=== PATIENT | female | born 1985 | race Caucasian/White ===

== ENCOUNTER 2018-09-27 14:30 | Emergency (ER) | payer OTHER, SELFPAY ==
[2018-09-27] MEDS ORDERED: ACETAMINOPHEN 500 MG TAB ONE (14:53)
[2018-09-27] MEDS ORDERED: NA CHLORIDE 0.9% 1,000 ML ONE ×2 (15:17→16:22)
[2018-09-27] MEDS ORDERED: CEFTRIAXONE/SWI 1gm 2 GM/20 ML SYR ONE (15:17)
[2018-09-27] MEDS ORDERED: NA CHLORIDE 0.9% 500 ML ONE (15:17)
[2018-09-27] MEDS ORDERED: AZITHROMYCIN 500 MG/250 ML BAG ONE (15:18)
[2018-09-27 15:35] LABS: Absolute Lymphocytes (CBC) 0.7 K/uL (0.7-4.9); Absolute Monocytes 0.4 K/uL (0.1-1.3); Absolute Neutrophil 3.5 K/uL (1.8-8.0); Basophils % 0.6 % (0-1.3); Eosinophils % 0.2 % (0-4.4); Hematocrit 43.4 % (36.0-45.0); Lymphocytes % 14.4 % (15.3-44.8); MPV 10.9 fL (7.6-11.3); Monocytes % 9.7 % (3.3-12.3); RBC Red Blood Cell Count 4.82 M/uL (3.86-4.86)
[2018-09-27 15:53] LABS: Albumin 3.4 g/dL (3.4-5.0); Bilirubin Total 0.3 mg/dL (0.2-1.0); Potassium 3.3 mmol/L (3.5-5.1); Protein, Total 7.9 g/dL (6.4-8.2)
[2018-09-27] MEDS ORDERED: IBUPROFEN 400 MG TAB ONE (16:22)
[2018-09-27] MEDS ORDERED: IBUPROFEN 200 MG TAB PO ONE (16:22)
--- NOTE | 2018-09-27 16:29 | ER ---
Nurse's Notes [facility] Name: Nelda Hernandez Age: 33 yrs Sex: Female : 1985 Arrival Date: 09/27/2018 Time: 14:33 Bed 28 Private MD: Diagnosis: Pneumonia due to other specified bacteria;Fever, unspecified;Hypokalemia Presentation: 09/27 14:45 Presenting complaint: Patient states: DX with "moderate pneumonia" by [facility] and was instructed to come to ER for possible IV ABX. Transition of care: patient was not received from another setting of care. Onset of symptoms was September 22, 2018. Risk Assessment: Do you want to hurt yourself or someone else? Patient reports no desire to harm self or others. Initial Sepsis Screen: Does the patient meet any 2 criteria? Temp <36.0*C (96.8*F)) or > 38.3*C (100.9*F). Does the patient have a suspected source of infection? Yes: Productive cough/pneumonia. Care prior to arrival: None. 14:45 Method Of Arrival: Ambulatory 14:45 Acuity: ANDRAE 3 Triage Assessment: 14:47 General: Appears in no apparent distress. comfortable, Behavior is calm, cooperative, aj appropriate for age. Pain: Denies pain. Neuro: Level of Consciousness is awake, alert, obeys commands, Oriented to person, place, time, situation, Appropriate for age. Respiratory: Airway is patent Respiratory effort is even, unlabored, Respiratory pattern is regular, symmetrical. Respiratory: Reports cough that is. Derm: Skin is intact, is healthy with good turgor, Skin is pink, warm \\T\\ dry. normal. 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 - Social history:: Smoking status: Patient/guardian denies using tobacco, Patient uses alcohol, occasionally. - Ebola Screening: : Patient negative for fever greater than or equal to 101.5 degrees Fahrenheit, and additional compatible Ebola Virus Disease symptoms Patient denies exposure to infectious person Patient denies travel to an Ebola-affected area in the 21 days before illness onset No symptoms or risks identified at this time. - Family history:: not pertinent. Screenin:04 Abuse screen: Denies threats or abuse. Denies injuries from another. Nutritional mg2 screening: No deficits noted. Tuberculosis screening: No symptoms or risk factors identified. Fall Risk None identified. Assessment: 15:23 General: Appears in no apparent distress. comfortable, Behavior is calm, cooperative. mg2 Pain: Complains of pain in right posterior upper lobe Pain does not radiate. Quality of pain is described as aching, only when she coughs Pain began gradually, 4 days ago Is intermittent. Neuro: Level of Consciousness is awake, alert, obeys commands, Oriented to person, place, time, situation. Cardiovascular: Capillary refill < 3 seconds Patient's skin is warm and dry. Respiratory: Airway is patent Respiratory effort is even, unlabored, Respiratory pattern is regular, symmetrical. Respiratory: Reports cough that is non-productive, pain with cough. GI: No signs and/or symptoms were reported involving the gastrointestinal system. : No signs and/or symptoms were reported regarding the genitourinary system. EENT: No signs and/or symptoms were reported regarding the EENT system. Derm: Skin is intact, is healthy with good turgor, Skin is pink, warm \\T\\ dry. normal. Musculoskeletal: No signs and/or symptoms reported regarding the musculoskeletal system. 16:17 Reassessment: Patient appears in no apparent distress at this time. Patient and/or mg2 family updated on plan of care and expected duration. Pain level reassessed. Patient is alert, oriented x 3, equal unlabored respirations, skin warm/dry/pink. 16:35 Reassessment: patient for discharge after iv fluid administration. mg2 17:35 Reassessment: incentive spirometry test done-1500 ml volume. mg2 Vital Signs: 14:47 BP 114 / 73; Pulse 127; Resp 20; Temp 102.0; Pulse Ox 97% on R/A; Weight 63.5 kg; aj Height 5 ft. 6 in. (167.64 cm); 16:17 Pulse 103; Resp 18; Temp 99.3(O); Pulse Ox 100% ; Pain 0/10; mg2 17:08 BP 110 / 71; Pulse 97; Resp 18; Temp 99.3(O); Pulse Ox 100% on R/A; Pain 0/10; mg2 14:47 Body Mass Index 22.60 (63.50 kg, 167.64 cm) ED Course: 14:33 Patient arrived in ED. as 14:46 Triage completed. aj 14:47 Arm band placed on right wrist. Patient placed in an exam room. aj 14:49 Pavel Davis MD is Attending Physician. reema 15:03 Bishop Devries RN is Primary Nurse. mg2 15:04 Patient has correct armband on for positive identification. potline monitor on. Pulse mg2 ox on. NIBP on. Door closed. Warm blanket given. 15:24 No provider procedures requiring assistance completed. Inserted saline lock: 20 gauge mg2 in right antecubital area, using aseptic technique. Blood collected. 16:28 Pablo Grady MD is Referral Physician. reema 17:14 IV discontinued, intact, bleeding controlled, No redness/swelling at site. Pressure mg2 dressing applied. Administered Medications: 14:45 Drug: Tylenol 1000 mg Route: PO; aj 16:35 Follow up: Response: No adverse reaction; Marked relief of symptoms mg2 15:22 Drug: NS 0.9% 1000 ml Route: IV; Rate: 1 bolus; Site: right antecubital; mg2 16:36 Follow up: Response: No adverse reaction; IV Status: Completed infusion mg2 15:22 Drug: Rocephin 2 grams Route: IV; Rate: per protocol; Site: right antecubital; mg2 16:36 Follow up: Response: No adverse reaction; IV Status: Completed infusion mg2 15:53 Drug: Zithromax 500 mg Route: IVPB; Infused Over: 1 hrs; Site: right antecubital; mg2 17:04 Follow up: Response: No adverse reaction; IV Status: Completed infusion mg2 15:53 Drug: NS 0.9% 1000 ml Route: IV; Rate: 125 ml/hr; Site: right antecubital; mg2 17:04 Follow up: Response: No adverse reaction; IV Status: Order to discontinue infusion mg2 16:34 Drug: NS 0.9% 1000 ml Route: IV; Rate: 1 bolus; Site: right antecubital; mg2 17:04 Follow up: Response: No adverse reaction; Marked relief of symptoms mg2 17:05 Follow up: Response: No adverse reaction; IV Status: Completed infusion mg2 16:34 Drug: Ceftin 500 mg Route: PO; mg2 16:35 Follow up: Response: No adverse reaction mg2 17:04 Not Given (fever subsided): Motrin 600 mg PO once mg2 17:14 Drug: Potassium Effervescent Tablet 50 mEq Route: PO; mg2 17:14 Follow up: Response: No adverse reaction; Medication administered at discharge. mg2 Outcome: 16:29 Discharge ordered by . reema 17:14 Discharged to home ambulatory, with family. mg2 17:14 Condition: stable 17:14 Discharge instructions given to patient, family, Instructed on discharge instructions, follow up and referral plans. medication usage, Demonstrated understanding of instructions, follow-up care, medications, Prescriptions given X 3. 17:36 Patient left the ED. mg2 Signatures: Rebecca Ramirez, RN Pavel Berrios MD MD cha Martinez, Amelia as Gardose, Michele, RN RN mg2
--- NOTE | 2018-09-27 16:29 | EDPHYS ---
Physician Documentation [facility] Name: Nelda Hernandez Age: 33 yrs Sex: Female : 1985 Arrival Date: 09/27/2018 Time: 14:33 Bed 28 Private MD: ED Physician Pavel Davis HPI: 09/27 14:56 This 33 yrs old Female presents to ER via Ambulatory with complaints of Abn reema CXR. 14:56 The patient has shortness of breath with light activity. Onset: The symptoms/episode reema began/occurred 3 day(s) ago. Duration: The symptoms are continuous, and are steadily getting worse. The patient's shortness of breath has no apparent modifying factors. The patient or guardian reports cough, that is intermittent, difficulty breathing, flu symptoms, arthralgias, low-grade fever, myalgias. Modifying factors: The symptoms are alleviated by remaining still, the symptoms are aggravated by activity, lying flat. Associated signs and symptoms: The patient has no apparent associated signs or symptoms. Severity of symptoms: At their worst the symptoms were moderate in the emergency department the symptoms are unchanged. Associated signs and symptoms: Pertinent positives: chest pain, fever, sore throat. 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 - Social history:: Smoking status: Patient/guardian denies using tobacco, Patient uses alcohol, occasionally. - Ebola Screening: : Patient negative for fever greater than or equal to 101.5 degrees Fahrenheit, and additional compatible Ebola Virus Disease symptoms Patient denies exposure to infectious person Patient denies travel to an Ebola-affected area in the 21 days before illness onset No symptoms or risks identified at this time. - Family history:: not pertinent. ROS: 14:56 Constitutional: Negative for fever, chills, and weight loss, Eyes: Negative for injury, reema pain, redness, and discharge, ENT: Negative for injury, pain, and discharge, Neck: Negative for injury, pain, and swelling, Cardiovascular: Negative for chest pain, palpitations, and edema, Abdomen/GI: Negative for abdominal pain, nausea, vomiting, diarrhea, and constipation, Back: Negative for injury and pain, : Negative for injury, bleeding, discharge, and swelling, MS/Extremity: Negative for injury and deformity, Skin: Negative for injury, rash, and discoloration, Neuro: Negative for headache, weakness, numbness, tingling, and seizure, Psych: Negative for depression, anxiety, suicide ideation, homicidal ideation, and hallucinations, Allergy/Immunology: Negative for hives, rash, and allergies, Endocrine: Negative for neck swelling, polydipsia, polyuria, polyphagia, and marked weight changes, Hematologic/Lymphatic: Negative for swollen nodes, abnormal bleeding, and unusual bruising. 14:56 Respiratory: Positive for cough, dyspnea on exertion, pleurisy, shortness of breath. Exam: 14:56 Constitutional: This is a well developed, well nourished patient who is awake, alert, reema and in no acute distress. Head/Face: Normocephalic, atraumatic. Eyes: Pupils equal round and reactive to light, extra-ocular motions intact. Lids and lashes normal. Conjunctiva and sclera are non-icteric and not injected. Cornea within normal limits. Periorbital areas with no swelling, redness, or edema. ENT: Nares patent. No nasal discharge, no septal abnormalities noted. Tympanic membranes are normal and external auditory canals are clear. Oropharynx with no redness, swelling, or masses, exudates, or evidence of obstruction, uvula midline. Mucous membranes moist. Neck: Trachea midline, no thyromegaly or masses palpated, and no cervical lymphadenopathy. Supple, full range of motion without nuchal rigidity, or vertebral point tenderness. No Meningismus. Chest/axilla: Normal chest wall appearance and motion. Nontender with no deformity. No lesions are appreciated. Abdomen/GI: Soft, non-tender, with normal bowel sounds. No distension or tympany. No guarding or rebound. No evidence of tenderness throughout. Back: No spinal tenderness. No costovertebral tenderness. Full range of motion. Skin: Warm, dry with normal turgor. Normal color with no rashes, no lesions, and no evidence of cellulitis. MS/ Extremity: Pulses equal, no cyanosis. Neurovascular intact. Full, normal range of motion. Neuro: Awake and alert, GCS 15, oriented to person, place, time, and situation. Cranial nerves II-XII grossly intact. Motor strength 5/5 in all extremities. Sensory grossly intact. Cerebellar exam normal. Normal gait. 14:56 Cardiovascular: Rate: tachycardic, Rhythm: regular, Pulses: Pulses are 4+ in bilateral radial, brachial, femoral, popliteal, posterior tibial and and dorsalis pedis arteries.. Heart sounds: normal, murmur, not appreciated, rub, not appreciated, gallop, not appreciated, S1, normal, S2, normal, S3, normal. 14:56 Respiratory: the patient does not display signs of respiratory distress, Respirations: normal, Breath sounds: decreased breath sounds, that are mild, are heard in the right posterior upper lobe. 14:56 Abdomen/GI: Inspection: abdomen appears normal, Bowel sounds: normal, Palpation: [facility] abdomen is soft and non-tender, Liver: no appreciated palpable abnormalities, Hernia: not appreciated. Vital Signs: 14:47 BP 114 / 73; Pulse 127; Resp 20; Temp 102.0; Pulse Ox 97% on R/A; Weight 63.5 kg; aj Height 5 ft. 6 in. (167.64 cm); 16:17 Pulse 103; Resp 18; Temp 99.3(O); Pulse Ox 100% ; Pain 0/10; mg2 17:08 BP 110 / 71; Pulse 97; Resp 18; Temp 99.3(O); Pulse Ox 100% on R/A; Pain 0/10; mg2 14:47 Body Mass Index 22.60 (63.50 kg, 167.64 cm) aj MDM: 14:49 Patient medically screened. [facility] 15:00 Data reviewed: vital signs, nurses notes, lab test result(s), radiologic studies. [facility] 09/27 14:56 Order name: CBC with Diff; Complete Time: 16:26 [facility] 09/27 14:56 Order name: Comprehensive Metabolic Panel; Complete Time: 16:26 [facility] 09/27 14:56 Order name: Flu; Complete Time: 16:26 [facility] 09/27 14:56 Order name: Blood Culture Adult (2) [facility] 09/27 16:07 Order name: Urine Dipstick--Ancillary (enter results) ag 09/27 16:07 Order name: Urine --Ancillary (enter results) 01/02 15:08 Order name: INCENTIVE SPIROMETRY reema Administered Medications: 14:45 Drug: Tylenol 1000 mg Route: PO; aj 16:35 Follow up: Response: No adverse reaction; Marked relief of symptoms mg2 15:22 Drug: NS 0.9% 1000 ml Route: IV; Rate: 1 bolus; Site: right antecubital; mg2 16:36 Follow up: Response: No adverse reaction; IV Status: Completed infusion mg2 15:22 Drug: Rocephin 2 grams Route: IV; Rate: per protocol; Site: right antecubital; mg2 16:36 Follow up: Response: No adverse reaction; IV Status: Completed infusion mg2 15:53 Drug: Zithromax 500 mg Route: IVPB; Infused Over: 1 hrs; Site: right antecubital; mg2 17:04 Follow up: Response: No adverse reaction; IV Status: Completed infusion mg2 15:53 Drug: NS 0.9% 1000 ml Route: IV; Rate: 125 ml/hr; Site: right antecubital; mg2 17:04 Follow up: Response: No adverse reaction; IV Status: Order to discontinue infusion mg2 16:34 Drug: NS 0.9% 1000 ml Route: IV; Rate: 1 bolus; Site: right antecubital; mg2 17:04 Follow up: Response: No adverse reaction; Marked relief of symptoms mg2 17:05 Follow up: Response: No adverse reaction; IV Status: Completed infusion mg2 16:34 Drug: Ceftin 500 mg Route: PO; mg2 16:35 Follow up: Response: No adverse reaction mg2 17:04 Not Given (fever subsided): Motrin 600 mg PO once mg2 17:14 Drug: Potassium Effervescent Tablet 50 mEq Route: PO; mg2 17:14 Follow up: Response: No adverse reaction; Medication administered at discharge. mg2 Disposition: 09/27/18 16:29 Discharged to Home. Impression: Pneumonia due to other specified bacteria, Fever, unspecified, Hypokalemia. - Condition is Stable. - Discharge Instructions: Fever, Adult, Community-Acquired Pneumonia, Adult, Community-Acquired Pneumonia, Adult, [id number], Fever, Adult, [id number]. - Prescriptions for cefuroxime axetil 500 mg Oral tablet - take 1 tablet by ORAL route 2 times per day; 20 tablet. Albuterol Sulfate 90 mcg/actuation - inhale 1-2 puff by INHALATION route every 4-6 hours; 1 Inhaler. Zithromax 500 mg Oral Tablet - take 1 tablet by ORAL route once daily for 5 days; 5 tablet. - Medication Reconciliation Form, Thank You Letter, Antibiotic Education, Prescription Opioid Use form. - Follow up: Private Physician; When: 2 - 3 days; Reason: Recheck today's complaints, Continuance of care, Re-evaluation by your physician. Follow up: Pablo Grady; When: 2 - 3 days; Reason: Recheck today's complaints, Continuance of care, Re-evaluation by your physician. - Problem is new. - Symptoms have improved. Signatures: Dispatcher [employer] EDRebecca Oglesby RN RN aj Anderson, Corey, MD MD cha Gardose, Michele, RN RN mg2 Corrections: (The following items were deleted from the chart) 15:00 14:56 Abdomen/GI: Exam negative for reema reema 17:36 16:29 09/27/2018 16:29 Discharged to Home. Impression: Pneumonia due to other specified mg2 bacteria; Fever, unspecified; Hypokalemia. Condition is Stable. Discharge Instructions: Fever, Adult, Community-Acquired Pneumonia, Adult, Community-Acquired Pneumonia, Adult, [id number], Fever, Adult, [id number]. Prescriptions for cefuroxime axetil 500 mg Oral tablet - take 1 tablet by ORAL route 2 times per day; 20 tablet, Albuterol Sulfate 90 mcg/actuation - inhale 1-2 puff by INHALATION route every 4-6 hours; 1 Inhaler, Zithromax 500 mg Oral Tablet - take 1 tablet by ORAL route once daily for 5 days; 5 tablet. and Forms are Medication Reconciliation Form, Thank You Letter, Antibiotic Education, Prescription Opioid Use. Follow up: Private Physician; When: 2 - 3 days; Reason: Recheck today's complaints, Continuance of care, Re-evaluation by your physician. Follow up: Pablo Grady; When: 2 - 3 days; Reason: Recheck today's complaints, Continuance of care, Re-evaluation by your physician. Problem is new. Symptoms have improved. reema
[2018-09-27] MEDS ORDERED: CEFUROXIME 250 MG TAB PO ONE (17:00)
[2018-09-27] MEDS ORDERED: POTASSIUM 25 MEQ EFFERV TAB ONE (17:16)
[2018-09-27 18:32] LABS: Urine Blood TRACE (NEG); Urine Glucose NEGATIVE (NEG); Urine Protein 1+ (NEG); Urine pH 6.5 (5.0-7.0)
== END 2018-09-27 17:36 | disposition home or self-care (01) ==
LOC: ER 14:30
DX: J18.9 Pneumonia, unspecified organism (principal); E87.6 Hypokalemia
CPT/HCPCS: 36415; 80053; 81003; 81025; 85025; 87040; 87804; 96365; 99284; J0456; J0696; J7030

== ENCOUNTER 2024-06-02 09:59 | Emergency (ER) | payer BC ==
--- OUTSIDE RECORDS SUMMARY | 2024-06-02 10:02 | XMS REPORT | Continuity of Care Document ---
Author Name Unknown Address [address] [place] [address] [address] thconnect Address [address] [place] [address] 1 495 [place] [address] Care Team Providers Care Slug Press Operator Name Role Phone Flor Malagon Attending Clinician Unavailable Flor Malagon Admitting Clinician Unavailable Payers Payer Name Policy Type Policy Number Effective Date Expirati on Date Source Allergies, Adverse Reactions, Alerts Allergy Name Allergy Type Status Severity Reaction(s) Onset Date Inactive Date Treating Clinician Comments Source No Known Allergie s DA Active U 05-18 00:00: 00 [facility] Procedures Procedure Date / Time Performed Performing Clinicia n Source [id number] 2021-06-12 00:00:00 [facility]01 [facility] Encounters Start Date/Time End Date/Time Encounter Type Admission Type Attending Clinicians Care Facility Care Department Encounter ID Source 2021-06-12 09:30:00 2021-06-14 13:25:00 Inpatient EL Flor Malagon [facility] [id number] [facility] 2021-06-11 01:58:00 2021-06-11 01:58:00 Outpatient Flor Malagon [facility] [id number] [facility] 2021-01-30 09:27:07 2021-01-30 09:27:07 Outpatient Flor Malagon [facility] [id number] [facility] Results Test Description Test Time Test Comments Results Result Co mments Source COMPREHENSIVE METABOLIC [id number] 07:53:00* Test Item Value Reference Range Interpretation Comme nts SODIUM (test code = NA) 141 mEq/L 135-145 N POTASSIUM (test code = K) 5.3 mEq/L 3.5-5.0 H CHLORIDE (test code = CL) 106 mEq/L 100-115 N CARBON DIOXIDE (test code = CO2) 24 mEq/L 22-31 N ANION GAP (test code = GAP) 16.80 10-20 N GLUCOSE (test code = GLU) 63 mg/dL 65-110 L BLOOD UREA NITROGEN (test co de = BUN) 10 mg/dL 7-18 N GLOMERULAR FILTRATION RATE ( test code = GFR) 181 ml/min >60 N CREATININE (test code = CREAT) 0.4 mg/dL 0.5-1.0 L TOTAL PROTEIN (test code = PROT) 6.5 gm/dL 6.3-8.2 N ALBUMIN (test code = ALB) 2.9 gm/dL 3.4-4.8 L CALCIUM (test code = CA) 8.3 mg/dL 8.4-10.2 L BILIRUBIN TOTAL (test code = BILT) 0.3 mg/dL 0.2-1.0 SGOT/AST (test code = AST) 69 units/L 15-37 H SGPT/ALT (test code = ALT) 33 units/L 12-78 N ALKALINE PHOSPHATASE TOTAL ( test code = ALKP) 158 units/L 46-116 H AG HEPATITIS B [id number] 05:45:00* Test Item Value Reference Range Interpretation Comme [facility] AG HEPATITIS B SURFACE (test code = HBSAG) NONREACTIVE NONREACTIVE AB HEPATITIS C [id number] 05:45:00* Test Item Value Reference Range Interpretation Comme [facility] AB HEPATITIS C (test code = HCVAB) NONREACTIVE NONREACTIVE SIGNAL TO CUTOFF (test code = CUTOFF) 0.08 <0.80 N RUBELLA [id number] 05:45:00* Test Item Value Reference Range Interpretation Comme [facility] RUBELLA SCREEN (test code = RUBSC) IUnit/mL See_Comment IU/ML INTERP RETATION OF SERUM RUBELLA-IGG AB --------- < 5.0 NEGATIVE - NO RUBELLA IGG ANTIBODY DETECTED5.0-9.9 EQUIVOCAL>= 10.0 POSITIVE - RUBELLA IGG ANTIBODY DETECTED [Automated message] The system which generated this result transmitted reference range: <5.0=Neg. The reference range was not used to interpret this result as normal/abnormal. AB [id number] 05:45:00* Test Item Value Reference Range Interpretation Comme nts AB TREPONEMA (test code = TREPAB) NONREACTIVE NONREACTIVE AB HIV 1 05:45:00* Test Item Value Reference Range Interpretation Comme nts AB HIV 1 2 (test code = RBE09JM) NONREACTIVE NONREACTIVE Done by [employer] 4th Gen HIV Ag/Ab Combo Screen AB RUBELLA [id number] 05:44:00* Test Item Value Reference Range Interpretation Comme nts AB RUBELLA IGG (test code = RUBGAB) Positive IUnit/mL See_Comment IU/ML INTERPRETATION OF SERUM RUBELLA-IGG AB --------- < 5.0 NEGATIVE - NO RUBELLA IGG ANTIBODY DETECTED5.0-9.9 EQUIVOCAL>= 10.0 POSITIVE - RUBELLA IGG ANTIBODY DETECTED [Automated message] The system which generated this result transmitted reference range: <5.0=Neg. The reference range was not used to interpret this result as normal/abnormal. AG HEPATITIS B [id number] 22:19:00* Test Item Value Reference Range Interpretation Comme nts AG HEPATITIS B SURFACE (test code = HBSAG) NONREACTIVE NONREACTIVE AB HEPATITIS C [id number] 22:19:00* Test Item Value Reference Range Interpretation Comme nts AB HEPATITIS C (test code = HCVAB) NONREACTIVE NONREACTIVE SIGNAL TO CUTOFF (test code = CUTOFF) 0.08 <0.80 N RUBELLA [id number] 22:19:00* Test Item Value Reference Range Interpretation Comme nts RUBELLA SCREEN (test code = RUBSC) IUnit/ml AB [id number] 22:19:00* Test Item Value Reference Range Interpretation Comme nts AB TREPONEMA (test code = TREPAB) NONREACTIVE NONREACTIVE AB HIV 1 22:19:00* Test Item Value Reference Range Interpretation Comme nts AB HIV 1 2 (test code = PWO95TO) NONREACTIVE NONREACTIVE Done by Siemens Eye[employer] 4th Gen HIV Ag/Ab Combo Screen AG HEPATITIS B [id number] 13:11:00* Test Item Value Reference Range Interpretation Comme nts AG HEPATITIS B SURFACE (test code = HBSAG) NONREACTIVE NONREACTIVE AB HEPATITIS C [id number] 13:11:00* Test Item Value Reference Range Interpretation Comme nts AB HEPATITIS C (test code = HCVAB) NONREACTIVE SIGNAL TO CUTOFF (test code = CUTOFF) <0.80 RUBELLA [id number] 13:11:00* Test Item Value Reference Range Interpretation Comme nts RUBELLA SCREEN (test code = RUBSC) IUnit/ml AB [id number] 13:11:00* Test Item Value Reference Range Interpretation Comme nts AB TREPONEMA (test code = TREPAB) NONREACTIVE NONREACTIVE AB HIV 1 13:11:00* Test Item Value Reference Range Interpretation Comme nts AB HIV 1 2 (test code = KOT09OD) NONREACTIVE COMPREHENSIVE METABOLIC [id number] 12:14:00* Test Item Value Reference Range Interpretation Comme nts SODIUM (test code = NA) 143 mEq/L 135-145 N POTASSIUM (test code = K) 3.6 mEq/L 3.5-5.0 N CHLORIDE (test code = CL) 107 mEq/L 100-115 N CARBON DIOXIDE (test code = CO2) 26 mEq/L 22-31 N ANION GAP (test code = GAP) 13.80 10-20 N GLUCOSE (test code = GLU) 101 mg/dL 65-110 N BLOOD UREA NITROGEN (test co de = BUN) 11 mg/dL 7-18 N GLOMERULAR FILTRATION RATE ( test code = GFR) 95 ml/min >60 N CREATININE (test code = CREAT) 0.7 mg/dL 0.5-1.0 N TOTAL PROTEIN (test code = PROT) 6.0 gm/dL 6.3-8.2 L ALBUMIN (test code = ALB) 2.9 gm/dL 3.4-4.8 L CALCIUM (test code = CA) 8.3 mg/dL 8.4-10.2 L BILIRUBIN TOTAL (test code = BILT) 0.1 mg/dL 0.2-1.0 L SGOT/AST (test code = AST) 20 units/L 15-37 N SGPT/ALT (test code = ALT) 29 units/L 12-78 N ALKALINE PHOSPHATASE TOTAL ( test code = ALKP) 154 units/L 46-116 H COVID 19 Asymptomatic IH [id number] 11:41:00* Test Item Value Reference Range Interpretation Comme nts COVID 19 Asymptomatic IH AG (test code = COVNONPUIAG) NEGATIVE NEGATIVE This test has be en authorized only for the detection ofproteins from SARS-CoV-2, not for any other viruses orpathogens. Negative results should be treated as presumptive andconfirmed with a molecular assay, if necessary for patientmanagement. Negative results do not rule out COVID-19 andshould not be used as the sole basis for treatment orpatient management decisions, including infection controldecisions. Negative results should be considered in thecontext of a patient's recent exposures, history and thepresence of clinical signs and symptoms consistent withCOVID-19. This test has not been FDA cleared or approved; the test hasbeen authorized by FDA under an Emergency Use Authorization(EUA) for use by laboratories certified under the CLIA thatmeet the requirements to perform moderate, high or waivedcomplexity tests. This test is authorized for use at thePoint of Care (POC), i.e., in patient care settingsoperating under a CLIA Certificate of Waiver, Certificate ofCompliance, or Certificate of Accreditation. This test is only authorized for the duration of thedeclaration that circumstances exist justifying theauthorization of emergency use of in vitro diagnostic testsfor detection and/or diagnosis of COVID-19 under Dcmqzwi158(b)(1) of the Act, 21 U.S.C. 360bbb-3(b)(1), unless theauthorization is terminated or revoked sooner. CBC W/AUTO [id number] 11:14:00* Test Item Value Reference Range Interpretation Comme nts WHITE BLOOD CELL (test code = WBC) 8.6 K/mm3 6.5-12.3 N RED BLOOD CELL (test code = RBC) 3.55 M/mm3 3.51-4.69 N HEMOGLOBIN (test code = HGB) 11.8 g/dL 10.1-13.8 N HEMATOCRIT (test code = HCT) 35.1 % 32.5-41.8 N MEAN CELL VOLUME (test code = MCV) 98.9 fL 84.6-96.6 H MEAN CELL HGB (test code = MCH) 33.2 pg 27.3-33.9 N MEAN CELL HGB CONCETRATION ( test code = MCHC) 33.6 gm/dL 32.0-34.2 N RED CELL DISTRIBUTION WIDTH (test code = RDW) 13.1 % 12.2-16.3 N PLATELET COUNT (test code = PLT) 155 K/mm3 134-363 N MEAN PLATELET VOLUME (test c ode = MPV) 11.7 fL 9.2-12.7 N NEUTROPHIL % (test code = NT%) 72.0 % 57.9-77.3 N LYMPHOCYTE % (test code = LY%) 17.9 % 14.5-29.7 N MONOCYTE % (test code = MO%) 6.9 % 3.6-10.2 N EOSINOPHIL % (test code = EO%) 1.2 % 0.0-3.0 N BASOPHIL % (test code = BA%) 0.4 % 0.1-0.9 N NEUTROPHIL # (test code = NT#) 6.2 K/mm3 LYMPHOCYTE # (test code = LY#) 1.5 K/mm3 MONOCYTE # (test code = MO#) 0.6 K/mm3 EOSINOPHIL # (test code = EO#) 0.10 K/mm3 BASOPHIL # (test code = BA#) 0.0 K/mm3 RBC MORPHOLOGY REQUIRED (jame t code = RBCM) NORMAL NORMAL PLATELET MORPHOLOGY REQUIRED (test code = PLTMR) NORMAL NORMAL - US PREG AFTER [id number] 10:23:00 [facility] : 1985 Sex: F Patient Name: ERIKA JOHNSON Unit No: [id number] EXAMS: CPT CODE: [id number] US PREG AFTER 1ST TRI [address] [facility] [address], [place] [address] OBSTETRICAL ULTRASOUND REPORT Pat. Name: ERIKA JOHNSON Pat. No: [id number] Study Date: 02/03/2021 9:03am , Age: 11 1985, 35 Pregnancies: 3, Para 2 LMP: Unknown GA byUS: 21w2d GA Selected: 21w0d (From Known E) VINCE: 06/16/2021 Referring MD: FLOR MALAGON City Councilman: Maricruz Ortega RDMS CPT4: [id number] Admitting MD: FLOR MALAGON Hist/Ind: ANATOMY SCAN 1 MEASUREMENTS AGE GROWTH EVALUATION Measurement GA Range Srce %for GA Ratios ----- ---- ------- BPD 5.2 cm 21w6d (52e5q-86q7t) Hadl BPD 74% FL/BPD 0.70 HC 19.2 cm 21w2d(19w5d- 22w6d) Hadl HC 59% FL/AC 0.22 APD 5.1 cm APD HC/AC 1.17 (1.05 - 1.24) TAD 5.3 cm TAD CI 0.80 (0.70 - 0.86) AC 16.3 cm 21w1d (91g4x-17s9s) Hadl AC 53% FL 3.6 cm 21w0d (12w7t-92c2y) Hadl FL 51%HL 3.5 cm 22w0d (44o6b-83s6n) Lencho HL 67% GA for sonogram 21w2d (40l1w-83a9r) Weight Estimate: based on (BPD,HC,AC,FL) Hadlock Weight: 424 gm (362-486) Hadlock : 0lbs, 14oz Normal: 410 gm (280-860) Pascual Wt% 51% for 21.0 wks Cervical Length: 3.9 cm Heart Rate: 149 bpm CLINICAL SUMMARY Type of Gestation: Rhodes Intrauterine in transverse presentation. size is appropriate for gestational age. growth: Consistent with normal growth motion and organs seen: somatic activity observed body and limb movements seen Four chamber heart observed Left ventricular outflow tract (LVOT) seen Right ventricular outflow tract (RVOT) seen Regular cardiac rhythm observed Normal intracranial anatomy seen face and nasal bone seen Umbilical cord insertion in fetus seen [facility] NAME: ERIKA JOHNSON Radiology Department PHYS: Flor Maya MD [address] : 1985 AGE: 35 SEX: F [place], [place] [address] LOC: [facility] PHONE #: [phone] EXAM DATE: 02/03/2021 STATUS: REG CLI FAX #: [phone] RAD NO: Page 1 Signed Report (CONTINUED) Patient Name: ERIKA JOHNSON Unit No: [id number] EXAMS: CPT CODE: [id number] US PREG AFTER 1ST TRI [address] (Continued) stomach, Renal Fossa, Bladder and Spine seen Three vessel umbilical cord noted All four extremities observed abnormalities observed: None seen at thisexam Placental location: Anterior Placental maturity : Grade 1 There is no evidence of placenta previa. Amniotic fluid volume is normal. Uterus and adnexa: No significant abnormality is seen. Thank you for allowing us to participate in the care of this patient. Leonor Seten M.D. Electronic Signature 02/03/2021 10:23am at 1023 Reported and signed by: Cecelia Steen MD CC: Flor Malagon MD Technologist: Maricruz Ortega RDMS Probe: Trnscrbd D/ (1023) t.SDR.CER Orig Print D/T: S: 02/03/2021 (1023) [facility] NAME: ALEXERIKA Radiology Department PHYS: Flor Maya MD [address] : 1985 AGE: 35 SEX: F [place] [address] LOC: [facility] PHONE #: [phone] EXAM DATE: 02/03/2021 STATUS: REG CLI FAX #: [phone] RAD NO: Page 2Signed Report Patient Name: ERIKA JOHNSON Unit No: [id number] EXAMS: CPT CODE: [id number] US PREG [id number] TRI 54703 (Continued) [facility] NAME: ERIKA JOHNSON Radiology Department PHYS: Flor Maya MD [address] : 1985 AGE: 35 SEX: F [place] [address] LOC: [facility] PHONE #: [phone] EXAM DATE: 02/03/2021 STATUS: REG CLI FAX #: [phone] RAD NO: Page 3 Signed Report Notes Date/Time Note Provider Source 2021-06-14 07:35:00 [facility] OB Disch REPORT#:[id number] REPORT STATUS: Signed DATE:06/14/21 TIME: 0735 PATIENT: ERIKA JOHNSON UNIT #: [id number] ROOM/BED: : 84 AGE: 35 SEX: F ATTEND: Flor Malagon MD ADM AUTHOR: Anjana Pro MD * ALL edits or amendments must be made on the electronic/computer document * Subjective Subjective Admission EGA: Weeks: 39 Days: 3 Status/day: post operative (day #2) Patient reports: Patient reports: Yes: normal lochia, pain management effective, tolerating po well, voiding well, voiding without pain, tolerating ambulation, flatus. No: complaints. Objective General VS: Vital Signs Date Temp Pulse Resp B/P B/P Mean Pulse Ox FiO2 06/13-06/14 97.7-98.4 55-82 -18 98-107/62-69 73.8-81.4 96-97 Last Documented: Result Date Time B/P 101/67 06/14 0400 Temp 98.0 06/14 0400 Pulse 82 06/14 0400 Resp 16 06/14 0400 Pulse Ox 97 06/14 0357 B/P Mean 78.6 06/14 0357 O2 Delivery Room air 06/14 357 PATIENT WEIGHT: Weight (lb): 171 Weight (oz): Weight (kg): 77.564 Physical Exam Neuro: Exam: alert, oriented x3, normal speech, CNII-XII grossly intact Abdomen: post gravid, soft, no abnormal tenderness, no guarding, no rebound tenderness Incision site: well approximated edges, shirley intact, dry, no drainage, no inflammation Uterus: involution appropriate, non-tender Fundus: firm, below the umbilicus Lochia: normal Lower extremities: Edema: trace Results Findings/Data: Laboratory Tests: 06/13 1204 Hematology Hgb (10.1 - 13.8 g/dL) 10.5 Hct (32.5 - 41.8 %) 31.8 L Discharge Summary General Assessment: nml progress Date of admission: Date of admission: 06/12/21 Admission diagnosis: previous uterine incision Hospital course: repeat admit, nml postop/postpart care Procedures: repeat CS delivery Discharge condition: stable Discharge to: Home/Self Care Discharge diagnosis: full-term uncomp delivery Discharge management: less than 30 mins Nursing data: The data set between the solid lines has been imported from nursing documentation. Any exceptions have been noted below under Provider comments. Delivery date infant A: 06/12/21 Delivery time A: 0801 Birthweight (gm) infant A: 3390 Feeding preference: Gender A: Male 1 minute A: 5 minutes infant A: 10 minutes infant A: Provider comments on imported nursing data: [] Plan: routine care, discharge today Discharge Instructions Instructions: routine instr sheet given Diet: Regular Activity: As Tolerated, No Driving, No [place] for 6 Wks, No Lifting >20lbs, No Strenuous Activity Additional discharge routines: Wound/Dressing Care Wound/dressing care: Keep wound clean and dry Contraception discussed: abstinence for 4-6 weeks, will discuss at PP visit Discharge meds: Continue taking these medications: PNV/FE FUM/FA ( MULTIVITAMIN) 28 MG IRON-800 MCG TAB 1 TABLET ORAL DAILY. FERROUS SULFATE (FEOSOL) 325 MG TAB 325 MILLIGRAM ORAL DAILY. Start taking the following new medications: IBUPROFEN (MOTRIN) 600 MG TAB 600 MILLIGRAM ORAL EVERY 6 HOURS NEEDED. as needed for PAIN SCALE 1-3 ( USE 1ST) Qty = 30 No Refills HYDROcodone/APAP (NORCO 5/325) 1 TAB TAB 1 TABLET ORAL EVERY FOUR HOURS. as needed for postop pain Qty = 30 No Refills Prescriptions: e-prescribe at 0737 RPT #:[id number] END OF REPORT [facility] 2021-06-13 08:13:00 [facility] OB Postpart Progr Note REPORT#:[id number] REPORT STATUS: Signed DATE:06/13/21 TIME: 812 PATIENT: ERIKA JOHNSON UNIT #: [id number] ROOM/BED: : 84 AGE: 35 SEX: F ATTEND: Flor Malagon MD ADM AUTHOR: Lana Lechuga DO * ALL edits or amendments must be made on the electronic/computer document * Subjective Subjective Admission EGA: Weeks: 39 Days: 3 Status/day: post , post operative (day 1 ) Comments: Doing well, no complaints. Pain well controlled. Voiding freely, tolerating reg diet, no n/v. Baby doing well. Objective Nursing Documentation Review Nursing data: The data set between the solid lines has been imported from nursing documentation. Any exceptions have been noted below under Provider comments. Feeding preference: Post hemorrhage risk score: Medium Risk for Hemorrhage. Provider comments on imported nursing data: [] General VS: Vital Signs Date Temp Pulse Resp B/P B/P Mean Pulse Ox FiO2 06/12-06/13 97.4-98.7 58-78 9-28 80-118/50-63 61.0-82.0 94-100 Last Documented: Result Date Time B/P 92/51 06/13 0420 Temp 98.7 06/13 0420 Pulse 78 06/13 0420 Resp 18 06/13 0420 B/P Mean 77.0 06/12 1502 Pulse Ox 96 06/12 1430 PATIENT WEIGHT: Weight (lb): 171 Weight (oz): Weight (kg): 77.564 Physical Exam Neuro: Exam: alert, oriented x3, normal speech Abdomen: soft, no abnormal tenderness, no guarding, no rebound tenderness Incision site: dressing clean dry Uterus: firm, involution appropriate, non-tender Fundus: firm, at the umbilicus, non-tender Lochia: normal Diagnosis, Assessment Plan Diagnosis, Assessment Plan Assessment: nml progress Plan: routine care, circumcision tomorrow, discharge tomorrow at 0814 RPT #:[id number] END OF REPORT [facility] 2021-06-12 09:24:00 [facility] ([facility] Clinical Note REPORT#:[id number] REPORT STATUS: Signed DATE:06/12/21 TIME: 923 PATIENT: ERIKA JOHNSON UNIT #: [id number] [facility] [birth year] AGE: 35 SEX: F ATTEND: Flor Malagon MD ADM AUTHOR: Flor Malagon MD * ALL edits or amendments must be made on the electronic/computer document * Clinical Note Note: Operative Report Dictation # [id number] at 0924 [facility] #:[id number] END OF REPORT [facility] 2021-06-12 09:23:00 [id number] [facility] [address] [place], [place] [address] PATIENT NAME: ERIKA JOHNSON ADMIT DATE: 06/12/21 ACCOUNT NO: [id number] ROOM NO: F.2007 AGE: 35 SEX: F ADMITTING PHYSICIAN: Flor Malagon MD ATTENDING PHYSICIAN: Flor Malagon MD OPERATION DATE: 06/12/2021 PREOPERATIVE DIAGNOSES: A 39 and 3/7th weeks, prior low transverse section x2. POSTOPERATIVE DIAGNOSES: A 39 and 3/7th weeks, prior low transverse section x2. PROCEDURE: Scheduled repeat low transverse section. SURGEON: Flor Malagon MD LINER HELPER: CELESTINO Cruz, medically necessary. ANESTHESIA: Combined spinal epidural. INTRAVENOUS FLUIDS: 1800 mL. ESTIMATED BLOOD LOSS: 700 mL. URINE OUTPUT: 100 mL, clear. COMPLICATIONS: None. ANTIBIOTICS: 2 g of Ancef preoperatively. FINDINGS: Cephalic presenting baby boy with Apgars of 8 and 9, nuchal cord x1 reduced. weight 7 pounds 6 ounces. Normal uterus, tubes, and ovaries. PROCEDURE IN DETAIL: The patient was taken to the operating room where her combined spinal epidural was placed. She was placed in the dorsal supine position. A Avitia was placed sterilely and adequate level was noted. She was prepped and draped in the usual sterile fashion. A time-out was performed. An elliptical skin incision was made around her prior skin incision and the prior skin incision was removed. The underlying subcutaneous tissue was taken down to the fascia with the scalpel. The fascia was nicked in the midline. This opening was extended laterally with the Cheng scissors. The superior and inferior aspect of the fascial incision was then dissected off from the underlying rectus muscles sharply. The muscles were in the midline. The peritoneum was tented up and incised sharply. This opening was extended superiorly and inferiorly with good visualization of the bladder. The bladder blade was placed. The uterus was palpated. The baby was noted to be oblique with the head in the right upper quadrant. The head was easily guided into the PATIENT NAME: ERIKA JOHNSON pelvis after which the bladder flap was created sharply. The bladder blade was replaced. The lower uterine segment was incised in a low transverse fashion. Amniotomy was performed. Clear fluid was noted. The uterine incision was expanded bluntly. The baby's head was delivered with fundal pressure without difficulty. The nose and mouth were bulb suctioned. A nuchal cord was reduced. The body followed without difficulty. The cord was clamped and cut. The baby was shown to the parents and handed to the nurses. The placenta was then delivered with fundal massage. The uterus was exteriorized and cleared of all clots and debris. The uterine incision was closed in a running-locked fashion with 0 Monocryl suture. Good hemostasis was noted. The uterus was replaced in the patient's abdomen. The gutters were cleared of all clots and debris. The bladder flap was inspected and noted to be hemostatic. The peritoneum and muscle was reapproximated in the midline with 4 interrupted 0 Monocryl suture. The muscle was inspected and noted to be hemostatic. The fascia was closed from both ends with 0 PDS. The subcutaneous tissue was irrigated and cauterized. It was closed with 2-0 plain gut suture. The skin was closed with shirley. All counts were correct. The patient tolerated the procedure well and went to recovery room in stable condition. Dictated By: Flor Malagon MD WT: OP:[email or web address]/[email or web address].01/NTS Conf#: [id number]/DID#: [id number] Authenticated by Flor Malagon MD On 06/16/2021 05:15:41 PM at 0515 PATIENT NAME: ERIKA JOHNSON [facility] 2021-06-11 12:52:00 [facility]) OB Admission / H P REPORT#:[id number] REPORT STATUS: Signed DATE:06/11/21 TIME: 1252 PATIENT: ERIKA JOHNSON UNIT #: [id number] ROOM/BED: : 84 AGE: 35 SEX: F ATTEND: Flor Malagon MD ADM AUTHOR: Flor Malagon MD * ALL edits or amendments must be made on the electronic/computer document * OB History Chief complaint: scheduled HPI: 35 yo @ 39 3/7 weeks w/ prior LTCS x 2 scheduled for a Repeat LTCS on Tuesday, 06/12 @ 7:30, Hemanth Asher assisting. PNC: Dr. Flor Malagon 1. Prior c/s x 2 2. GBS+ Urine 3. AMA-NIPT normal 4. Recurrent UTIs-daily cephalexin until delivery PNLabs: O positive, IDC negative, RI, NR, HB neg, HCV neg, HIV neg, GBS positive, GC/Chl neg POB: 02/07/2015, 41 weeks, 7#11oz, Male, Primary LTCS, E, TWHT by Twila Hernandez". 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 h/o HPV w/ normal f/u. No STDs history: : 3 Term: 2 : 0 Abortus: 0 Living children: 2 Complications (prev preg): none Previous : low uterine trans incis Number of prev : 2 Indication for prior : arrest dilatation/descent Current : Best EDC: 06/16/21 Admission EGA (weeks) 39 Admission EGA (days) 3 EDC based on: LMP Conditions of : kidney/bladder infection Labs: Blood type: See HPI above Past History Additional Medical History: None Additional Surgical History: 02/1995 Tonsillectomy; 01/2002 [place]; 02/07/2014 Primary LTCS; 05/18/2017 Repeat LTCS Other Social History Employed, Good social support Additional Social History: to [employer]. 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/ [employer] Medications: Home Medications: PNV/FE FUM/FA ( MULTIVITAMIN) 1 TAB PO DAILY FERROUS SULFATE (FEOSOL) 325 MG PO DAILY Allergies: Coded Allergies: No Known Allergies (05/18/17) Objective General VS: PATIENT WEIGHT: Weight (lb): Weight (oz): Weight (kg): Notes: This document prepared prior to patient's admission Result Findings/Data: Laboratory Tests 06/10 0950 Chemistry Sodium (135 - 145 mEq/L) 143 Potassium (3.5 - 5.0 mEq/L) 3.6 Chloride (100 - 115 mEq/L) 107 Carbon Dioxide (22 - 31 mEq/L) 26 Anion Gap (10 - 20) 13.80 BUN (7 - 18 mg/dL) 11 Creatinine (0.5 - 1.0 mg/dL) 0.7 Glomerular Filtr Rate (>60 ml/min) 95 Glucose (65 - 110 mg/dL) 101 Calcium (8.4 - 10.2 mg/dL) 8.3 L Total Bilirubin (0.2 - 1.0 mg/dL) 0.1 L AST (15 - 37 units/L) 20 ALT (12 - 78 units/L) 29 Total Alk Phosphatase (46 - 116 units/L) 154 H Total Protein (6.3 - 8.2 gm/dL) 6.0 L Albumin (3.4 - 4.8 gm/dL) 2.9 L Laboratory Tests 06/10 0950 Hematology WBC (6.5 - 12.3 K/mm3) 8.6 RBC (3.51 - 4.69 M/mm3) 3.55 Hgb (10.1 - 13.8 g/dL) 11.8 Hct (32.5 - 41.8 %) 35.1 MCV (84.6 - 96.6 fL) 98.9 H MCH (27.3 - 33.9 pg) 33.2 MCHC (32.0 - 34.2 gm/dL) 33.6 RDW (12.2 - 16.3 %) 13.1 Plt Count (134 - 363 K/mm3) 155 MPV (9.2 - 12.7 fL) 11.7 Neut % (Auto) (57.9 - 77.3 %) 72.0 Lymph % (Auto) (14.5 - 29.7 %) 17.9 [place] % (Auto) (3.6 - 10.2 %) 6.9 Eos % (Auto) (0.0 - 3.0 %) 1.2 Baso % (Auto) (0.1 - 0.9 %) 0.4 Neut # (Auto) (K/mm3) 6.2 Lymph # (Auto) (K/mm3) 1.5 [place] # (Auto) (K/mm3) 0.6 Eos # (Auto) (K/mm3) 0.10 Baso # (Auto) (K/mm3) 0.0 Laboratory Tests 06/10 06/10 0950 0950 Serology Treponema pallidum Ab (NONREACTIVE) NONREACTIVE Hep Bs Antigen (NONREACTIVE) NONREACTIVE Hepatitis C Antibody (NONREACTIVE) NONREACTIVE Hep C Ab Signal/Cutoff (<0.80) 0.08 HIV 1 2 Antibody (NONREACTIVE) NONREACTIVE Rubella Screen (<5.0=Neg IUnit/mL) SARS-CoV-2 Ag (Rapid) (NEGATIVE) NEGATIVE Diagnosis, Assessment Plan Diagnosis, Assessment Plan Free Text A P: 35 yo at 39 3/7 weeks w/ prior LTCS x 2 Repeat LTCS 06/12 @ 7:30 2 gm ancef pre op Having her 3rd boy and desires circumcision Herbert Malagon at [facility] then Dr. Archuleta close to home planned s/p Covid vaccine s/p TDAP at 1305 RPT #:[id number] END OF REPORT [facility]
[2024-06-02] MEDS ORDERED: NA CHLORIDE 0.9% 1,000 ML ONE (10:40)
[2024-06-02 10:57] LABS: Absolute Eosinophils 0.3 K/uL (0-0.5); Absolute Lymphocytes (CBC) 1.5 K/uL (0.7-4.9); Absolute Monocytes 0.4 K/uL (0.1-1.3); Absolute Neutrophil 3.6 K/uL (1.8-8.0); Basophils % 0.7 % (0-1.3); Eosinophils % 4.9 % (0-4.4); Hematocrit 38.3 % (36.0-45.0); Lymphocytes % 25.2 % (15.3-44.8); MCV 94.2 fL (80-100); MPV 9.6 fL (7.6-11.3); Monocytes % 7.2 % (3.3-12.3); Nucleated Red Blood Cells % 0.1 % (0-0); Platelets 182 thou/uL (152-406); RBC Red Blood Cell Count 4.07 M/uL (3.86-4.86); Red Cell Distribution Width 12.3 % (12.1-15.2)
[2024-06-02 11:02] LABS: Specific Gravity 1.002 (1.005-1.030); Specific Gravity < 1.005 (1.005-1.030); Sqamous Epithelial <5 /HPF (None Seen); Urine Bacteria None Seen /HPF (<20); Urine Bilirubin NEGATIVE (Negative); Urine Blood Trace (Negative); Urine Clarity Clear (Clear); Urine Color Colorless (Yellow); Urine Culture Reflex Order NOT NEEDED; Urine Glucose NEGATIVE (Negative); Urine Ketones NEGATIVE (Negative); Urine Microscopic Reflex YN ORDER UMIC; Urine Nitrite NEGATIVE (Negative); Urine Protein NEGATIVE (Negative); Urine RBC <5 /HPF (None Seen); Urine Urobilinogen Normal (Normal); Urine WBC None Seen /HPF (<5); Urine pH 6.5 (5.0-7.0)
[2024-06-02 11:11] LABS: Anion Gap 8.9 mEq/L (5.0-15.0); BUN Blood Urea Nitrogen 9 mg/dL (7-18); Bicarbonate 29 mEq/L (21-32); Glomerular Filtration Rate 102 ml/min (=/>90); Glucose Level 102 mg/dL (74-106); Potassium 3.9 mEq/L (3.5-5.1); Sodium Level 144 mEq/L (136-145)
[2024-06-02 11:12] LABS: HCG, Quantitative < 1 mIU/mL (1-3)
--- NOTE | 2024-06-02 11:36 | RAD REPORT ---
EXAM DESCRIPTION: US - Transvaginal Study Probe - 06/02/2024 11:26 am CLINICAL HISTORY: Abd pain;Vaginal bleeding COMPARISON: No comparisons TECHNIQUE: Sonographic grayscale and color flow images of the pelvis were obtained. FINDINGS: Last menstrual period: 05/20/2024. Left lower segment subserosal 3.9 cm fibroid. The uterus is normal in size, shape and echotexture oth erwise. The uterus measures 9.5 cm in length. The endometrial stripe measures up to 1.3 cm in thickness, normal. Both ovaries are normal in size, shape and echotexture. The right ovary measures 3.4 x 2.2 x 2.0 cm, and contains a 2.7 cm anechoic cyst/dominant follicle. The left ovary measures 2.5 x 2.3 x 2.0 cm. No ovarian or parovarian lesions. No adnexal masses. Normal Doppler blood flow was demonstrated to both ovaries. Trace fluid in the cul-de-sac, probably physiologic. IMPRESSION: No acute findings. Trace fluid in the cul-de-sac, likely physiologic. Dominant cyst or follicle in the right ovary measu ring up to 2.7 cm. Incidentally noted left lower segment 3.9 cm fibroid.
--- NOTE | 2024-06-02 12:47 | ER ---
Nurse's Notes [facility] Name: Nelda Hernandez Age: 38 yrs Sex: Female : 1985 Arrival Date: 06/02/2024 Time: 09:59 Bed 20 Private MD: Diagnosis: Abnormal uterine and vaginal bleeding, unspecified Presentation: 06/02 10:26 Chief complaint: Patient states: Irregular vaginal bleeding for 3 days. Just finished ll1 normal period last week. UPT negative at home. Coronavirus screen: Client denies travel out of the [place] in the last 14 days. At this time, the client does not indicate any symptoms associated with coronavirus-19. Ebola Screen: Patient denies travel to an Ebola-affected area in the 21 days before illness onset. Initial Sepsis Screen: Does the patient meet any 2 criteria? No. Patient's initial sepsis screen is negative. Does the patient have a suspected source of infection? No. Patient's initial sepsis screen is negative. Risk Assessment: Do you want to hurt yourself or someone else? Patient reports no desire to harm self or others. Onset of symptoms was May 31, 2024. 10:26 Method Of Arrival: Ambulatory ll1 10:26 Acuity: ANDRAE 3 ll1 Historical: - Allergies: 10:24 No Known Allergies; ll1 - PMHx: 10:24 None; ll1 - PSHx: 10:24 section; ll1 - Immunization history:: Adult Immunizations up to date. - Infectious Disease History:: Denies. - Social history:: Smoking status: Patient denies any tobacco usage or history of. - Family history:: not pertinent. Screenin:19 [facility] ED Fall Risk Assessment (Adult) History of falling in the last 3 months, tm6 including since admission No falls in past 3 months (0 pts) Confusion or Disorientation No (0 pts) Intoxicated or Sedated No (0 pts) Impaired Gait No (0 pts) Mobility Assist Device Used No (0 pt) Altered Elimination No (0 pt) Score/Fall Risk Level 0 - 2 = Low Risk Oriented to surroundings, Maintained a safe environment, Educated pt \T\ family on fall prevention, incl call for assistance when getting out of bed. Abuse screen: Denies threats or abuse. Denies injuries from another. Nutritional screening: No deficits noted. Tuberculosis screening: No symptoms or risk factors identified. Assessment: 11:17 General: Appears in no apparent distress. Behavior is calm, cooperative. Pain: Denies tm6 pain. Neuro: Level of Consciousness is awake, alert, obeys commands, Oriented to person, place, time, situation. Cardiovascular: Patient's skin is warm and dry. Respiratory: Airway is patent Respiratory effort is even, unlabored, Respiratory pattern is regular, symmetrical. GI: No signs and/or symptoms were reported involving the gastrointestinal system. : Reports vaginal bleeding that is with clots, heavy flow. :. EENT: No signs and/or symptoms were reported regarding the EENT system. Derm: No signs and/or symptoms reported regarding the dermatologic system. Musculoskeletal: No signs and/or symptoms reported regarding the musculoskeletal system. 12:24 Reassessment: Patient appears in no apparent distress at this time. Patient and/or tm6 family updated on plan of care and expected duration. Pain level reassessed. Patient is alert, oriented x 3, equal unlabored respirations, skin warm/dry/pink. Patient denies pain at this time. 12:53 Reassessment: Patient and/or family updated on plan of care and expected duration. Pain tm6 level reassessed. Patient is alert, oriented x 3, equal unlabored respirations, skin warm/dry/pink. Vital Signs: 10:26 BP 99 / 69; Pulse 85; Resp 17; Temp 97.9; Pulse Ox 98% ; Weight 63.5 kg; Height 5 ft. 6 ll1 in. ; Pain 2/10; 11:17 BP 106 / 67; Pulse 67; Pulse Ox 100% on R/A; Pain 0/10; tm6 12:24 BP 101 / 65; Pulse 68; Pulse Ox 100% on R/A; Pain 0/10; tm6 12:53 BP 121 / 78; Pulse 79; Resp 19; Temp 97.9; Pulse Ox 100% on R/A; Pain 0/10; tm6 10:26 Body Mass Index 22.60 (63.50 kg, 167.64 cm) ll1 10:26 Pain Scale: Adult ll1 11:17 Pain Scale: Adult tm6 12:24 Pain Scale: Adult tm6 12:53 Pain Scale: Adult tm6 ED Course: 10:02 Patient arrived in ED. mr 10:17 Pavel Davis MD is Attending Physician. [facility] 10:17 Arm band placed on Patient placed in an exam room, on a stretcher. db 10:27 Triage completed. ll1 10:29 Tara Haider, DAVIDSON is Primary Nurse. tm6 10:43 Abo/rh Typing Sent. tm6 10:43 Basic Metabolic Panel Sent. tm6 10:43 CBC with Diff Sent. tm6 10:43 Test, Urine Sent. tm6 10:43 Quantitative Hcg Sent. tm6 10:51 Urinalysis w/ reflexes Sent. tm6 11:19 Patient has correct armband on for positive identification. Bed in low position. Call tm6 light in reach. Side rails up X 1. Provided Education on: use of call hauser. Client placed on continuous cardiac and pulse oximetry monitoring. NIBP monitoring applied. Pulse ox on. NIBP on. Door closed. Noise minimized. 11:28 Transvaginal Study (Probe) In Process Unspecified. EDLA 12:46 Abbie Beverly MD is Referral Physician. [facility] 12:53 No provider procedures requiring assistance completed. IV discontinued, intact, tm6 bleeding controlled, No redness/swelling at site. Pressure dressing applied. Administered Medications: 10:50 Drug: NS 0.9% IV 1000 ml IV at 1 bolus Per protocol; 1000 mL bolus Route: IV; Rate: 1 tm6 bolus; Site: right antecubital; 12:52 Follow up: IV Status: Completed infusion; IV Intake: 1000ml tm6 12:52 Not Given (Patient Refused): [id number] mg IVP once tm6 Medication: 11:17 VIS not applicable for this client. tm6 Intake: 12:52 IV: 1000ml; Total: 1000ml. tm6 Outcome: 12:47 Discharge ordered by . [facility] 12:53 Discharged to home ambulatory, with family, tm6 12:53 Condition: stable 12:53 Discharge instructions given to patient, family, Instructed on discharge instructions, follow up and referral plans. medication usage, Demonstrated understanding of instructions, follow-up care, medications, Prescriptions given X 1, 12:54 Patient left the ED. tm6 Signatures: Dispatcher [employer] EDLA Pavel Davis MD MD cha Rivera, Mary, Reg Reg mr Harinder Neville, RN RN ll1 Oden, Sharifa, RN RN db Vitaly, Tawney, RN RN tm6
--- NOTE | 2024-06-02 12:47 | EDPHYS ---
Physician Documentation [facility] Name: Nelda Hernandez Age: 38 yrs Sex: Female : 1985 Arrival Date: 06/02/2024 Time: 09:59 Bed 20 Private MD: ED Physician Pavel Davis HPI: 06/02 12:41 This 38 yrs old Female presents to ER via Ambulatory with complaints of reema Vaginal Bleeding. 12:41 The patient presents with vaginal bleeding that is moderate. Onset: The reema symptoms/episode began/occurred 2 day(s) ago. Modifying factors: The symptoms are alleviated by nothing, the symptoms are aggravated by nothing. Associated signs and symptoms: The patient has no apparent associated signs or symptoms. Severity of symptoms: At their worst the symptoms were moderate, in the emergency department the symptoms have improved, moderately. The patient is not sexually active. The patient's method of control includes BCP. The patient has experienced similar episodes in the past, multiple times. Historical: - Allergies: 10:24 No Known Allergies; ll1 - PMHx: 10:24 None; ll1 - PSHx: 10:24 section; ll1 - Immunization history:: Adult Immunizations up to date. - Infectious Disease History:: Denies. - Social history:: Smoking status: Patient denies any tobacco usage or history of. - Family history:: not pertinent. ROS: 12:41 Constitutional: Negative for fever, chills, and weight loss, Eyes: Negative for injury, reema pain, redness, and discharge, ENT: Negative for injury, pain, and discharge, Neck: Negative for injury, pain, and swelling, Cardiovascular: Negative for chest pain, palpitations, and edema, Respiratory: Negative for shortness of breath, cough, wheezing, and pleuritic chest pain, Abdomen/GI: Negative for abdominal pain, nausea, vomiting, diarrhea, and constipation, Back: Negative for injury and pain, MS/Extremity: Negative for injury and deformity, Skin: Negative for injury, rash, and discoloration, Neuro: Negative for headache, weakness, numbness, tingling, and seizure, Psych: Negative for depression, anxiety, suicide ideation, homicidal ideation, and hallucinations, Allergy/Immunology: Negative for hives, rash, and allergies, Endocrine: Negative for neck swelling, polydipsia, polyuria, polyphagia, and marked weight changes, Hematologic/Lymphatic: Negative for swollen nodes, abnormal bleeding, and unusual bruising, 12:41 : Positive for vaginal bleeding, Exam: 12:41 Constitutional: This is a well developed, well nourished patient who is awake, alert, reema and in no acute distress. Head/Face: Normocephalic, atraumatic. Eyes: Pupils equal round and reactive to light, extra-ocular motions intact. Lids and lashes normal. Conjunctiva and sclera are non-icteric and not injected. Cornea within normal limits. Periorbital areas with no swelling, redness, or edema. ENT: Nares patent. No nasal discharge, no septal abnormalities noted. Tympanic membranes are normal and external auditory canals are clear. Oropharynx with no redness, swelling, or masses, exudates, or evidence of obstruction, uvula midline. Mucous membranes moist. Neck: Trachea midline, no thyromegaly or masses palpated, and no cervical lymphadenopathy. Supple, full range of motion without nuchal rigidity, or vertebral point tenderness. No Meningismus. Chest/axilla: Normal chest wall appearance and motion. Nontender with no deformity. No lesions are appreciated. Cardiovascular: Regular rate and rhythm with a normal S1 and S2. No gallops, murmurs, or rubs. Normal PMI, no JVD. No pulse deficits. Respiratory: Lungs have equal breath sounds bilaterally, clear to auscultation and percussion. No rales, rhonchi or wheezes noted. No increased work of breathing, no retractions or nasal flaring. Abdomen/GI: Soft, non-tender, with normal bowel sounds. No distension or tympany. No guarding or rebound. No evidence of tenderness throughout. Back: No spinal tenderness. No costovertebral tenderness. Full range of motion. Skin: Warm, dry with normal turgor. Normal color with no rashes, no lesions, and no evidence of cellulitis. MS/ Extremity: Pulses equal, no cyanosis. Neurovascular intact. Full, normal range of motion. Neuro: Awake and alert, GCS 15, oriented to person, place, time, and situation. Cranial nerves II-XII grossly intact. Motor strength 5/5 in all extremities. Sensory grossly intact. Cerebellar exam normal. Normal gait. Psych: Awake, alert, with orientation to person, place and time. Behavior, mood, and affect are within normal limits. 12:41 : CVA tenderness, is absent, Bladder: is normal, non-tender, Sexual behavior: the patient is sexually active, Vital Signs: 10:26 BP 99 / 69; Pulse 85; Resp 17; Temp 97.9; Pulse Ox 98% ; Weight 63.5 kg; Height 5 ft. 6 ll1 in. ; Pain 2/10; 11:17 BP 106 / 67; Pulse 67; Pulse Ox 100% on R/A; Pain 0/10; tm6 12:24 BP 101 / 65; Pulse 68; Pulse Ox 100% on R/A; Pain 0/10; tm6 12:53 BP 121 / 78; Pulse 79; Resp 19; Temp 97.9; Pulse Ox 100% on R/A; Pain 0/10; tm6 10:26 Body Mass Index 22.60 (63.50 kg, 167.64 cm) ll1 10:26 Pain Scale: Adult ll1 11:17 Pain Scale: Adult tm6 12:24 Pain Scale: Adult tm6 12:53 Pain Scale: Adult tm6 MDM: 10:[address] [facility] 12:43 Differential diagnosis: menometrorrhagia, menorrhea, nonspecific abdominal pain, reema urinary tract infection. Data reviewed: vital signs, nurses notes, lab test result(s), radiologic studies, ultrasound. Consideration of Admission/Observation Escalation of care including admission/observation considered. I considered the following discharge prescriptions or medication management in the emergency department Medications were administered in the Emergency Department. See MAR. Independent interpretation of the following test(s) in the Emergency Department Radiology Department Ultrasound: My interpretation is vag probe usg. Test considered but Not performed: CT: no ct. Historians other than the Patient: Spouse/Significant Other: well informed. Care significantly affected by the following chronic conditions: cecil / metro. 06/02 10:19 Order name: Abo/rh Typing; Complete Time: 12:06/02 10:19 Order name: Basic Metabolic Panel; Complete Time: 12:06/02 10:19 Order name: CBC with Diff; Complete Time: 12:06/02 10:19 Order name: Test, Urine; Complete Time: 12:06/02 10:19 Order name: Quantitative Hcg; Complete Time: 12:06/02 10:19 Order name: Urinalysis w/ reflexes; Complete Time: 12: [facility] 06/02 12:43 Order name: ABO/RH no charge; Complete Time: 12:49 [facility] 06/02 10:19 Order name: US Transvaginal Study (Probe); Complete Time: 12:01 [facility] 06/02 10:19 Order name: IV Saline Lock; Complete Time: 10:43 [facility] 06/02 10:19 Order name: Labs collected and sent; Complete Time: 10:43 [facility] 06/02 10:19 Order name: NPO; Complete Time: 10:43 [facility] Administered Medications: 10:50 Drug: NS 0.9% IV 1000 ml IV at 1 bolus Per protocol; 1000 mL bolus Route: IV; Rate: 1 tm6 bolus; Site: right antecubital; 12:52 Follow up: IV Status: Completed infusion; IV Intake: 1000ml tm6 12:52 Not Given (Patient Refused): [id number] mg IVP once tm6 Disposition Summary: 06/02/24 12:47 Discharge Ordered Notes: Location: Home reema Problem: new reema Symptoms: have improved reema Condition: Stable reema Diagnosis - Abnormal uterine and vaginal bleeding, unspecified reema Followup: reema - With: Private Physician - When: 2 - 3 days - Reason: Recheck today's complaints, Continuance of care, Re-evaluation by your physician Followup: reema - With: Abbie Beverly MD - When: 2 - 3 days - Reason: Recheck today's complaints, Re-evaluation by your physician Discharge Instructions: - Discharge Summary Sheet reema - Abnormal Uterine Bleeding reema - Menorrhagia reema - Menorrhagia, [id number] reema - Abnormal Uterine Bleeding, [id number] reema Forms: - Medication Reconciliation Form reema - Antibiotic Education reema - Prescription Opioid Use reema - Patient Portal Instructions reema - Leadership Thank You Letter [facility] Prescriptions: - Diclofenac Sodium 75 mg Oral tablet, delayed release (enteric coated) - take 1 tablet ORAL route 2 times per day; 20 tablet; Refills: 0, Product reema Selection Permitted Signatures: Dispatcher [employer] EDPavel Ramirez MD MD cha Lewis, Lynsay, RN RN ll1 Sharifa Oden RN RN db Tara Haider RN RN tm6 Corrections: (The following items were deleted from the chart) 10:19 10:19 ABO/RH TYPING+BB.LAB.BRZ ordered. EDMS EDMS 10: 10:19 BASIC METABOLIC PANEL+C.LAB.BRZ ordered. EDMS EDMS 10: 10:19 CBC+H.LAB.BRZ ordered. EDMS EDMS 10: 10:19 Test, Urine+UC.LAB.BRZ ordered. EDMS EDMS 10: 10:19 QUANTITATIVE HCG+C.LAB.BRZ ordered. EDMS EDMS 10: 10:19 Urinalysis+U.LAB.BRZ ordered. EDMS EDMS
[2024-06-02 13:07] VITALS: O2SAT 100
[2024-06-02 13:09] VITALS: TEMP 97.9
[2024-06-02 13:11] VITALS: BP 121/78
== END 2024-06-02 12:54 | disposition home or self-care (01) ==
LOC: ER 09:59
DX: N93.9 Abnormal uterine and vaginal bleeding, unspecified (principal)
CPT/HCPCS: 96361; 85025; 81001; 80048; 36415; 86900; 81025; 86901; 84702; 76830; 96360; 99284; J7030